=== PATIENT | female | born 1965 | race Caucasian/White ===

== ENCOUNTER 2022-07-12 12:02 | Outpatient (CLI) | payer BC | END 2022-07-12 12:03 | disposition home or self-care (01) | LOC: CSHRAD 12:02 | PROVIDERS: ATTEND Family Medicine | DX: R05.9 Cough, unspecified (principal) | CPT/HCPCS: 71046 ==

== ENCOUNTER 2023-09-07 13:32 | Outpatient (CLI) | payer BC | END 2023-09-07 13:33 | disposition home or self-care (01) | LOC: CSHRAD 13:32 | PROVIDERS: ATTEND Family Medicine | DX: R05.9 Cough, unspecified (principal); R06.02 Shortness of breath; I51.7 Cardiomegaly; I28.9 Disease of pulmonary vessels, unspecified | CPT/HCPCS: 71046 ==